=== PATIENT | male | born 1970 | race African-American/Black ===

== ENCOUNTER 2017-10-15 07:54 | Inpatient (IN) | payer SELFPAY ==
[~2017-10-15] VITALS: Ht 182.9 cm; Wt 81.6 kg
[2017-10-15] VITALS (8 sets, daily range): BP systolic 114–153; BP diastolic 57–98
[2017-10-15] MEDS ORDERED: levETIRAcetam 500 MG in D5W 110 ML IV ONE (08:00)
[2017-10-15] MEDS ORDERED: LORazepam Inj 2mg/ml 1ml IV ONE ×2 (08:00→15:45)
--- NOTE | 2017-10-15 08:04 | Emergency Room Report ---
History of Present Illness General Chief Complaint: Seizure Source: EMS Present Illness HPI Patient is brought in by paramedics. They were called out because he had a seizure. He does have a history of seizures in the past. It's unknown whether he takes medications. According to witnesses he doesn't talk. He also didn't know his name when paramedics assessed him. Paramedics noted that he had a right gaze which was persistent. Also today noted stridor with respirations. No further history is available at this time. Allergies: Coded Allergies: UNABLE TO ASSESS (Unverified , 10/15/17) Cognitively impaired. Patient History Limited by: medical condition Past Medical History: see triage record Social History: Reports: smoking, drug use Social History Narrative homeless Reviewed Nursing Documentation: PMH: Agreed; PSxH: Agreed Nursing Documentation-PMH Past Medical History Deferred: Pt Cognitively Impaired Review of Systems All Other Systems: limited Physical Exam Vital Signs Date Time Temp Pulse Resp B/P (MAP) Pulse Ox O2 Delivery O2 Flow Rate FiO2 10/15/17 07:47 95 22 129/95 94 Room Air Sp02 EP Interpretation: reviewed, abnormal - interpreted as low by me General Appearance: other - dischevelled with R gaze persisting, intermittently seizing, Chronically Ill Head: normocephalic Eyes: bilateral eye PERRL, bilateral eye abnormal EOM - R gaze with occ nystagmus vs seizure, bilateral eye Scleral Injection ENT: moist mucus membranes - poor dentition, other - + gag Neck: full range of motion, supple Respiratory: other - upper airway noises Cardiovascular #1: regular rate, rhythm Cardiovascular #2: 2+ radial (R) Gastrointestinal: normal inspection, non tender, no mass, non-distended, decreased bowel sounds, scaphoid Musculoskeletal: back normal, pelvis stable, other - possible slight contracture L lower leg Neurologic: Babinski - L, other - eyes open, not respond to painful stimuli, seizure activity - more tonic invilving more L side Psychiatric: other - stupor with eyes open Reflexes: 2+ tricep (L); 3+ knee (L) Skin: warm/dry, other - dishevelled Procedures Critical Care Time Critical Care Time Total Critical Care Time: 30 min bedside evaluation and treatment excludes procedures (EKG). Reason for critical care: status epilepticus, stridor, repeat evaluations, pneumonia Possible complications: hypotension, hypertension, PR, shock, arrhythmias, metabolic acidosis, end organ damage, respiratory failure. Interventions: seizure treatment, emergent CT with consultation, repeat eval post tx of seizure control for agitation, antibiotics Course: Patient presented with status epilepticus and stridor. Airway evaluation and immediate seizure control. Consideration of bleed - discussed with radiologist who denies this. Seizures controlled. Patient with occasional diaphoretic episodes. Gradual improvement. Repeated neurologic exams improving, no further seizures. Consultations: nursing staff, EMS, radiologist, admitting MD Performed by: Dr. Low Tolerated well condition = serious Medical Decision Making Diagnostic Impression: Primary Impression: Status epilepticus Additional Impressions: Pneumonia Qualified Codes: J18.1 - Lobar pneumonia, unspecified organism Status post CVA Substance abuse Expressive aphasia ER Course Patient presents post seizure. He's had 2 more seizures since presenting to the emergency department. He has some stridorous respirations and his O2 sat is low. We will be treating him with Ativan and Keppra and considering intubation. DDx: breakthrough seizures, bleed, electrolyte abnormalities, occult infection. Evaluation with CT, CXR, EKG, labs. Lactate not ordered as expected to be high from status. Treating with IV hydration. EKG no injury, artifact. CXR with infiltrate. Labs with adequate ABG. Normal WBC, CMP. Min elevated ammonia. + tox for PCP and amphetamines. Antibiotics begun. Improved without stridor and seizures controlled. Agitation and vocalization. L weakness with min upgoing toe. Sens intact R side. Moaning responses - unable to communicate. Admit DINESH Dr. Nevarez. Laboratory Tests Test 10/15/17 08:00 10/15/17 08:30 10/15/17 09:28 White Blood Count 8.0 K/UL (4.8-10.8) Red Blood Count 5.06 M/UL (4.70-6.10) Hemoglobin 14.0 G/DL (14.2-18.0) L Hematocrit 43.2 % (42.0-52.0) Mean Corpuscular Volume 85 FL (80-99) Mean Corpuscular Hemoglobin 27.7 PG (27.0-31.0) Mean Corpuscular Hemoglobin Concent 32.4 G/DL (32.0-36.0) Red Cell Distribution Width 14.1 % (11.6-14.8) Platelet Count 211 K/UL (150-450) Mean Platelet Volume 8.7 FL (6.5-10.1) Neutrophils (%) (Auto) 84.2 % (45.0-75.0) H Lymphocytes (%) (Auto) 8.7 % (20.0-45.0) L Monocytes (%) (Auto) 6.4 % (1.0-10.0) Eosinophils (%) (Auto) 0.1 % (0.0-3.0) Basophils (%) (Auto) 0.6 % (0.0-2.0) Sodium Level 137 MMOL/L (136-145) Potassium Level 4.3 MMOL/L (3.5-5.1) Chloride Level 102 MMOL/L (98-107) Carbon Dioxide Level 29 MMOL/L (21-32) Anion Gap 6 mmol/L (5-15) Blood Urea Nitrogen 11 mg/dL (7-18) Creatinine 0.7 MG/DL (0.55-1.30) Estimate Glomerular Filtration Rate > 60 mL/min (>60) Glucose Level 109 MG/DL (74-106) H Calcium Level 8.8 MG/DL (8.5-10.1) Total Bilirubin 0.4 MG/DL (0.2-1.0) Aspartate Amino Transferase (AST) 25 U/L (15-37) Alanine Aminotransferase (ALT) 19 U/L (12-78) Alkaline Phosphatase 97 U/L (46-116) Ammonia 45 umol/L (11-32) H Total Creatine Kinase 273 U/L (26-308) Troponin I 0.000 ng/mL (0.000-0.056) Total Protein 8.4 G/DL (6.4-8.2) H Albumin 3.6 G/DL (3.4-5.0) Globulin 4.8 g/dL Albumin/Globulin Ratio 0.8 (1.0-2.7) L Salicylates Level 1.2 ug/mL (2.8-20) L Acetaminophen Level < 2 MCG/ML (10-30) L Serum Alcohol < 3 mg/dL Urine Color Yellow Urine Appearance Slightly cloudy Urine pH 5 (4.5-8.0) Urine Specific [place] 1.030 (1.005-1.035) Urine Protein 1+ (NEGATIVE) H Urine Glucose (UA) Negative (NEGATIVE) Urine Ketones Negative (NEGATIVE) Urine Occult Blood 3+ (NEGATIVE) H Urine Nitrite Negative (NEGATIVE) Urine Bilirubin Negative (NEGATIVE) Urine Urobilinogen 1 MG/DL (0.0-1.0) H Urine Leukocyte Esterase 1+ (NEGATIVE) H Urine RBC 5-10 /HPF (0 - 0) H Urine WBC 2-4 /HPF (0 - 0) Urine Squamous Epithelial Cells Few /LPF (NONE/OCC) Urine Bacteria Few /HPF (NONE) Urine Opiates Screen Negative (NEGATIVE) Urine Barbiturates Screen Negative (NEGATIVE) Phencyclidine (PCP) Screen Positive (NEGATIVE) H Urine Amphetamines Screen Positive (NEGATIVE) H Urine Benzodiazepines Screen Negative (NEGATIVE) Urine Cocaine Screen Negative (NEGATIVE) Urine Marijuana (THC) Screen Negative (NEGATIVE) Arterial Blood pH 7.410 (7.350-7.450) Arterial Blood Partial Pressure CO2 34.2 mmHg (35.0-45.0) L Arterial Blood Partial Pressure O2 97.7 mmHg (75.0-100.0) Arterial Blood HCO3 21.3 mmol/L (22.0-26.0) L Arterial Blood Oxygen Saturation 97.5 % (92.0-98.0) Arterial Blood Base Excess -2.6 Jd Test Positive EKG Diagnostic Results Rate: tachycardiac ST Segments: no acute changes - artifact Rhythm Strip Diag. Results EP Interpretation: yes Rhythm: no PVC's, no ectopy, other - ST Chest X-Ray Diagnostic Results Chest X-Ray Diagnostic Results : Chest X-Ray Ordered: Yes # of Views/Limited/Complete: 1 View Indication: Other EP Interpretation: Yes Interpretation: no effusion, no pneumothorax, other - R infiltrate Impression: Other Electronically Signed by: Will Low MD Last Vital Signs Date Time Temp Pulse Resp B/P (MAP) Pulse Ox O2 Delivery O2 Flow Rate FiO2 10/15/17 20:00 78 10/15/17 20:00 98.0 20 147/98 96 Room Air 98.0 10/15/17 16:50 2.0 Status: improved Disposition: ADMITTED INPATIENT Condition: Serious Scripts Unable to Obtain Active Prescriptions or Reported Meds Will Low M.D. Oct 15, 2017 08:04
[2017-10-15 08:22] LABS: BASOPHILS % (AUTO) 0.6 % (0.0-2.0); EOSINOPHILS % (AUTO) 0.1 % (0.0-3.0); HEMATOCRIT 43.2 % (42.0-52.0); LYMPHOCYTES % (AUTO) 8.7 % (20.0-45.0); MEAN CORPUSCULAR VOLUME 85 FL (80-99); MONOCYTES % (AUTO) 6.4 % (1.0-10.0); NEUTROPHILS % (AUTO) 84.2 % (45.0-75.0); PLATELET COUNT 211 K/UL (150-450); RED BLOOD COUNT 5.06 M/UL (4.70-6.10); RED CELL DISTRIBUTION WIDTH 14.1 % (11.6-14.8)
[2017-10-15 08:42] LABS: APPEARANCE,URINE SLIGHTLY CLOUDY; BILIRUBIN, URINE NEGATIVE (NEGATIVE); GLUCOSE, URINE (UA) NEGATIVE (NEGATIVE); KETONES,URINE NEGATIVE (NEGATIVE); LEUKOCYTE ESTERASE ,URINE 1+ (NEGATIVE); NITRITE,URINE NEGATIVE (NEGATIVE); PH,URINE 5 (4.5-8.0); PROTEIN,URINE 1+ (NEGATIVE); UROBILINOGEN,URINE 1 MG/DL (0.0-1.0)
[2017-10-15 08:44] LABS: COLOR,URINE YELLOW
[2017-10-15 08:46] LABS: ANION GAP 6 mmol/L (5-15); BLOOD UREA NITROGEN 11 mg/dL (7-18); CALCIUM 8.8 MG/DL (8.5-10.1); CARBON DIOXIDE 29 MMOL/L (21-32); CHLORIDE 102 MMOL/L (98-107); CREATININE 0.7 MG/DL (0.55-1.30); POTASSIUM 4.3 MMOL/L (3.5-5.1); SODIUM 137 MMOL/L (136-145)
[2017-10-15 09:01] LABS: ALANINE AMINOTRANSFERASE 19 U/L (12-78); ALBUMIN 3.6 G/DL (3.4-5.0); ALBUMIN/GLOBULIN RATIO 0.8 (1.0-2.7); ALKALINE PHOSPHATASE 97 U/L (46-116); ASPARTATE AMINO TRANSFERASE 25 U/L (15-37); BILIRUBIN,TOTAL 0.4 MG/DL (0.2-1.0); CREATINE KINASE 273 U/L (26-308)
--- NOTE | 2017-10-15 09:41 | Diagnostic Imaging Report ---
Indication: Shortness of breath Technique: One view of the chest Comparison: none Findings: There is mild elevation right hemidiaphragm with some atelectasis at the right lung base. The lungs and pleural spaces are clear. Heart size is normal Impression: No acute process
--- NOTE | 2017-10-15 09:46 | Diagnostic Imaging Report ---
Indications: Altered mental status Technique: Spiral acquisitions obtained through the brain. Angled axial and coronal 5 x 5 mm slices were reconstructed. Total dose length product 1435.44 mGycm. CTDI vol(s) 70.38 mGy. Dose reduction achieved using automated exposure control Comparison: None. 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 The prosthesis is not completely intact, with areas of fracture demonstrated. The prosthesis extends caudad peripherally cranial to me defect and reaches the right zygomatic arch, which appears intact. There is a chronic appearing fracture deformity of the left zygomatic arch. Underlying the craniectomy defect, there is encephalomalacia of the inferior right frontal lobe in the anterior right temporal lobe. There is resulting ex vacuo dilatation of the right lateral ventricle. There is a small focus of encephalomalacia involving the anterior midbrain just to the left of midline. There is also small amount of inflow encephalomalacia of the inferior left frontal lobe. No acute intracranial hemorrhage or edema. No mass effect nor midline shift. Otherwise normal calles-white differentiation. Visualized orbits are unremarkable. The right maxillary sinus demonstrates some mucosal thickening. There is questionably an old fracture deformity of the left maxillary sinus posterolateral wall. There is deformity of the medial left orbital wall. 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 Correlate with clinical and surgical history No evidence of acute intracranial bleed or mass effect Nasal fracture deformity, acuity indeterminate. Correlate with clinical findings Other chronic-appearing fracture deformities, as described Sinus disease The CT scanner at [facility] is accredited by the [employer] and the scans are performed using protocols designed to limit radiation exposure to as low as reasonably achievable to attain images of sufficient resolution adequate for diagnostic evaluation.
[2017-10-15] MEDS ORDERED: Zolpidem 5mg tab ORAL PRN (17:45)
[2017-10-15] MEDS ORDERED: Milk of Magnesia 30ml Ud ORAL PRN (17:45)
[2017-10-15] MEDS: levETIRAcetam 500mg/NS100ml 100 ML IVPB SCH (21:02)
[2017-10-15] MEDS: LORazepam Inj 2mg/ml 1ml IV PRN (21:02)
[2017-10-16] VITALS: BP 115/69
--- NOTE | 2017-10-16 00:45 | History and Physical Report ---
DATE OF ADMISSION: 10/15/2017 REASON FOR ADMISSION: Seizures. HISTORY OF PRESENT ILLNESS: This is a 48-year-old male, who is unable to give any history at this time, presents with seizure. The patient apparently has a history of seizure in the past per review by paramedics. The patient is now admitted for acute seizures. PAST MEDICAL HISTORY: Not fully clarified. MEDICATIONS: Not fully clarified. ALLERGIES: Not fully clarified. SOCIAL HISTORY: Not fully clarified. The patient questionably is homeless. PHYSICAL EXAMINATION: GENERAL: The patient is a well-developed male, somewhat disheveled. VITAL SIGNS: Overall appears stable. The patient's oxygen saturation 96% on two liters. HEENT: Negative. NECK: Supple. LUNGS: With fair air entry. CARDIAC: S1 and S2. Regular rate and rhythm. ABDOMEN: Soft and nontender. EXTREMITIES: No cyanosis or clubbing. LABORATORY DATA: Reviewed. Head CT reviewed. IMPRESSION: 1. Evidence of postsurgical changes of the right calvarium in the right cerebral hemisphere. 2. Evidence of encephalomalacia in the right frontal and temporal lobes. 3. Acute seizures. 4. Acute and possibly chronic encephalopathy. 5. Mildly elevated ammonia levels. 6. Evidence of metabolic acidosis likely due to the above. 7. Positive for PCP and amphetamines. RECOMMENDATIONS: 1. Supportive care. 2. We will give Keppra IV, Ativan p.r.n., seizure precautions, and IV hydration. 3. Monitor for acute seizures and hope to obtain further history once the patient is more alert. Domingo Nevarez M.D. DR: Shay JOB#: [id number] CC:
[2017-10-16] MEDS: LORazepam Inj 2mg/ml 1ml IV PRN ×2 (01:17→08:21)
[2017-10-16 04:00] VITALS: BP 129/86
[2017-10-16 08:15] VITALS: BP 151/78
[2017-10-16] MEDS: levETIRAcetam 500mg/NS100ml 100 ML IVPB SCH (08:20)
[2017-10-16 12:00] VITALS: BP 146/82
--- NOTE | 2017-10-16 14:57 | General Progress Note ---
Assessment/Plan Assessment/Plan 1. Evidence of postsurgical changes of the right calvarium in the right cerebral hemisphere. 2. Evidence of encephalomalacia in the right frontal and temporal lobes. 3. Acute seizures. 4. Acute and possibly chronic encephalopathy. 5. Mildly elevated ammonia levels. 6. Evidence of metabolic acidosis likely due to the above. 7. Positive for PCP and amphetamines. PLAN keppra po dc ativan PT monitor dc once stable Subjective Allergies: Coded Allergies: UNABLE TO ASSESS (Unverified , 10/15/17) Cognitively impaired. Subjective care noted wants to go home Objective Last 24 Hour Vital Signs Date Time Temp Pulse Resp B/P (MAP) Pulse Ox O2 Delivery O2 Flow Rate FiO2 10/16/17 12:00 97.8 96 19 146/82 96 Room Air 97.8 10/16/17 12:00 82 10/16/17 08:15 98.3 113 19 151/78 97 Room Air 98.3 10/16/17 08:00 117 10/16/17 04:00 98 10/16/17 04:00 98.4 89 20 129/86 97 Room Air 98.4 10/16/17 00:00 95 10/16/17 00:00 99.0 103 20 115/69 96 Room Air 99.0 10/15/17 20:00 78 10/15/17 20:00 98.0 90 20 147/98 96 Room Air 98.0 10/15/17 17:26 99.0 80 20 153/78 96 Room Air 99.0 10/15/17 16:50 99.4 77 22 132/95 100 Nasal Cannula 2.0 10/15/17 15:52 89 22 143/73 100 Nasal Cannula 2.0 Intake and Output 10/15/17 10/16/17 19:00 07:00 Intake Total 1265 ml 1300 ml Output Total 60 ml 950 ml Balance 1205 ml 350 ml Intake IV Total 1265 ml 1300 ml Output Urine Total 60 ml 950 ml # Bowel Movements 1 1 Height (Feet): 6 Height (Inches): 0.00 Weight (Pounds): 180 Objective WDWN NAD clear breath sounds bilaterally without rhonchi or wheeze [id number] without MRG NABS nontender no HSM no CCE nonfocal RENY TREVIZO Oct 16, 2017 14:57
[2017-10-16 16:00] VITALS: BP 153/82
[2017-10-16 20:00] VITALS: BP 140/85
[2017-10-17] VITALS: BP 139/77
[2017-10-17 04:00] VITALS: BP 135/88
[2017-10-17 08:00] VITALS: BP 124/62
--- NOTE | 2017-10-17 09:03 | General Progress Note ---
Assessment/Plan Assessment/Plan 1. Evidence of postsurgical changes of the right calvarium in the right cerebral hemisphere. 2. Evidence of encephalomalacia in the right frontal and temporal lobes. 3. Acute seizures. 4. Acute and possibly chronic encephalopathy. 5. Mildly elevated ammonia levels. 6. Evidence of metabolic acidosis likely due to the above. 7. Positive for PCP and amphetamines. PLAN keppra po dc once stable Subjective Allergies: Coded Allergies: UNABLE TO ASSESS (Unverified , 10/15/17) Cognitively impaired. Subjective care noted improved Objective Last 24 Hour Vital Signs Date Time Temp Pulse Resp B/P (MAP) Pulse Ox O2 Delivery O2 Flow Rate FiO2 10/17/17 08:00 98.1 84 24 124/62 98 Room Air 98.1 10/17/17 04:00 98.7 96 18 135/88 98 Room Air 98.7 10/17/17 04:00 82 10/17/17 00:00 99.0 97 18 139/77 98 Room Air 99.0 10/17/17 00:00 89 10/16/17 20:00 106 10/16/17 20:00 98.9 105 18 140/85 98 Room Air 98.9 10/16/17 16:00 91 10/16/17 16:00 98.0 92 18 153/82 98 Room Air 98.0 10/16/17 12:00 97.8 96 19 146/82 96 Room Air 97.8 10/16/17 12:00 82 Intake and Output 10/16/17 10/17/17 19:00 07:00 Intake Total 1200 ml 1220 ml Output Total 1800 ml Balance 1200 ml -580 ml Intake Oral 60 ml IV Total 1200 ml 1160 ml Output Urine Total 1800 ml Height (Feet): 6 Height (Inches): 0.00 Weight (Pounds): 180 Objective WDWN NAD clear breath sounds bilaterally without rhonchi or wheeze [id number] without MRG NABS nontender no HSM no CCE nonfocal RENY TREVIZO Oct 17, 2017 09:03
[2017-10-17] MEDS ORDERED: NS 275ml ONE (09:50)
[2017-10-17 12:00] VITALS: BP 135/89
[2017-10-17 16:00] VITALS: BP 132/53
[2017-10-17] MEDS ORDERED: Milk of Magnesia 30ml Ud ORAL PRN (17:45)
[2017-10-17] MEDS ORDERED: Zolpidem 5mg tab ORAL PRN (17:45)
[2017-10-17 20:00] VITALS: BP 129/73
[2017-10-18] VITALS: BP 146/91
[2017-10-18 04:00] VITALS: BP 132/74
[2017-10-18 08:00] VITALS: BP 126/80
--- NOTE | 2017-10-18 11:57 | General Progress Note ---
Assessment/Plan Assessment/Plan 1. Evidence of postsurgical changes of the right calvarium in the right cerebral hemisphere. 2. Evidence of encephalomalacia in the right frontal and temporal lobes. 3. Acute seizures. 4. Acute and possibly chronic encephalopathy. 5. Mildly elevated ammonia levels. 6. Evidence of metabolic acidosis likely due to the above. 7. Positive for PCP and amphetamines. PLAN keppra po dc once stable and safe on discharge Subjective Allergies: Coded Allergies: NO KNOWN ALLERGIES (Verified Allergy, Unknown, 10/17/17) Subjective care noted improved and stable Objective Last 24 Hour Vital Signs Date Time Temp Pulse Resp B/P (MAP) Pulse Ox O2 Delivery O2 Flow Rate FiO2 10/18/17 08:00 97.0 68 18 126/80 98 Room Air 97.0 10/18/17 04:00 98.4 82 20 132/74 95 98.4 10/18/17 00:00 98.2 95 20 146/91 98 98.2 10/17/17 20:00 98.7 82 20 129/73 98 98.7 10/17/17 16:00 97.5 89 18 132/53 97 Room Air 97.5 10/17/17 12:00 97.7 91 20 135/89 97 97.7 Intake and Output 10/17/17 10/18/17 19:00 07:00 Intake Total 1080 ml 1100 ml Output Total 600 ml 400 ml Balance 480 ml 700 ml Intake Oral 480 ml IV Total 600 ml 1100 ml Output Urine Total 600 ml 400 ml # Voids 2 # Bowel Movements 1 Laboratory Tests 10/17/17 12:25: Ammonia 27 Height (Feet): 6 Height (Inches): 0.00 Weight (Pounds): 180 Objective WDWN NAD clear breath sounds bilaterally without rhonchi or wheeze [id number] without MRG NABS nontender no HSM no CCE nonfocal RENY TREVIZO Oct 18, 2017 11:57
[2017-10-18 12:00] VITALS: BP 146/51
--- NOTE | 2017-10-20 16:25 | Diagnostic Imaging Report ---
Indications: Dysphagia Technique: Patient ingested multiple substances under the supervision of speech pathology. Video fluoroscopic recording performed. Total fluoroscopy time 226 seconds. Total dose area product 0.93263 mGycm2 Comparison: none Findings: There is slight delay in initiation of deglutition. There is some early pooling in the vallecula and piriform sinuses. No penetration or aspiration observed. Impression: Oromotor dysfunction, as described Please refer to speech pathology report for more detailed analysis
--- NOTE | 2017-10-20 16:49 | Discharge Summary ---
Discharge Summary Discharge Summary Discharge Summary DATE OF ADMISSION: 10/15/2017 DATE OF DISCHARGE: 10/18/2017 BRIEF HOSPITAL COURSE: Patient is a 47-year-old male, who presented to ED because of seizures. Patient apparently has history of seizure in the past. Unknown whether he takes medications. On evaluation at ED, chest x-ray showed no acute process. Head CT with extensive post surgical changes in the right calvarium and underlying right cerebral hemisphere. There was chronic appearing fracture deformities. She was admitted for evaluation of seizure. She was given supportive care and was given Keppra IV, Ativan when necessary and IV hydration. Keppra was eventually switched to by mouth. He had urine toxicology positive for PCP and amphetamines. Swallow evaluation showed oromotor dysfunction. He was eventually started on diet. Patient eventually was more alert and full treatment was not carried out as he signed AGAINST MEDICAL ADVICE. FINAL DIAGNOSES: Evidence of postsurgical changes of the right calvarium in the right cerebral hemisphere Evidence of encephalomalacia in the right frontal and temporal lobes Acute seizures Acute and possibly chronic encephalopathy Mildly elevated ammonia levels Evidence of metabolic acidosis Positive for PCP and amphetamines DISPOSITION: Patient left AMA I have been assigned to dictate discharge summary on this account, and I was not involved in the patient's management. Yolette Lewis NP Oct 20, 2017 16:49
== END 2017-10-18 16:26 | disposition left against medical advice (07) | DRG 100 ==
LOC: EDBD 07:54 → EMR 08:44 → EDBD 11:14 → 2W 11:14 → EDBEDREQ 15:59 → 4E 10-17 11:09
DX: R56.9 Unspecified convulsions (principal); G93.40 Encephalopathy, unspecified; E87.2 Acidosis; G93.89 Other specified disorders of brain; F19.10 Other psychoactive substance abuse, uncomplicated; Z98.890 Other specified postprocedural states
CPT/HCPCS: 36415; 36600; 70450; 71045; 74230; 80053; 80299; 80307; 80329; 81003; 82140; 82550; 82803; 84484; 85025; 87040; 87081; 93005; 99291